=== PATIENT | male | born 1945 | race Caucasian/White ===

== ENCOUNTER 2017-07-26 07:02 | Day surgery (SDC) | payer MEDICARE, BC ==
[2017-07-26] MEDS ORDERED: Dextrose 5%-Lactated Ringers 1,000 ML IV SCH (07:15)
[2017-07-26] MEDS ORDERED: Propofol 200 MG/20 ML SDV ONE (07:46)
[2017-07-26] MEDS ORDERED: fentaNYL 100 MCG/2 ML SDV ONE (07:46)
[2017-07-26 09:35] VITALS: BP 115/68
--- NOTE | 2017-07-31 09:00 | OR ---
DATE OF PROCEDURE: 07/26/2017 PREOPERATIVE DIAGNOSIS: History of colon carcinoma, due for followup colonoscopy. POSTOPERATIVE DIAGNOSIS: Normal colonoscopic examination. OPERATIVE PROCEDURE: Flexible colonoscopy ([id number]). INDICATIONS FOR PROCEDURE: This is a 72-year-old, status post sigmoid colon carcinoma resection, presenting for followup colonoscopy. The plan is to proceed with the colonoscopy with biopsies and/or polypectomy as indicated. Potential risks including bleeding and perforation were discussed, and the patient wishes to proceed. DETAILS OF PROCEDURE: The patient was taken to the operating room and placed in the left lateral decubitus position. IV sedation was administered, after which the initial digital rectal exam was performed and was unremarkable. Colonoscope was then passed into the rectum with retroflexion revealing uncomplicated hemorrhoidal columns. The scope was then passed to the level of cecum. The area of the anastomosis was identified. No local recurrences noted. Otherwise, the examination was unremarkable. The prep was quite clean. Otherwise, unremarkable colorectal anastomosis. There were no areas of diverticular disease, colitis, and no additional polyps or signs of neoplasia. The scope was then withdrawn and the procedure then concluded. The patient was taken to the recovery room in satisfactory condition. Recommendation would be to repeat the colonoscopy in 5 years. Leonid Garay MD /[id number]
== END 2017-07-26 09:59 | disposition home or self-care (01) ==
LOC: JP.SDS 07:02
PROVIDERS: ATTEND Surgery
DX: Z12.11 Encounter for screening for malignant neoplasm of colon (principal); Z85.038 Personal history of other malignant neoplasm of large intestine; F17.210 Nicotine dependence, cigarettes, uncomplicated
CPT/HCPCS: G0105; J2704; J3010; J7042

== ENCOUNTER 2019-08-30 19:56 | Emergency (ER) | payer MEDICARE ==
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
[2019-08-30] MEDS ORDERED: Lactated Ringers 1,000 ML IV ONE (21:02)
[2019-08-30] MEDS ORDERED: Acetaminophen 500 MG Tab PO ONE (21:03)
[2019-08-30] MEDS ORDERED: cefTRIAXone 1 GM in Sodium Chloride 0.9% 50 ML IV ONE (21:45)
[2019-08-30 22:06] VITALS: BP 109/51; PULSE 77
--- NOTE | 2019-09-01 09:34 | CR ---
CHEST: 2 view CLINICAL HISTORY:Low-grade fever COMPARISON:CT chest 06/27/2019 FINDINGS: Lungs are hyperaerated. There is chronic elevation of the left hemidiaphragm. There is patchy density in both lower lung tavares suspect for pneumonia. Patient has a known aortic arch aneurysm. IMPRESSION: COPD Bilateral lower lobe infiltrates Known aortic arch aneurysm Chronic elevation left hemidiaphragm
== END 2019-08-30 22:53 ==
LOC: JP.ED 19:56
DX: D72.825 Bandemia (principal); Z85.820 Personal history of malignant melanoma of skin; Z87.891 Personal history of nicotine dependence
CPT/HCPCS: 36415; 71046; 80048; 83605; 85025; 85379; 87040; 96361; 96365; 99284; 99285; A9270; J0696; J7050; J7120

== ENCOUNTER 2020-06-12 19:13 | Emergency (ER) | payer MEDICARE ==
[2020-06-12] MEDS ORDERED: Bupivacaine 0.5% 10 ML SDV INJECT ONE (19:46)
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
[2020-06-12 20:12] VITALS: BP 137/78; PULSE 97
--- NOTE | 2020-06-14 08:54 | CR ---
Fingers Second Digit Lt F1 CLINICAL HISTORY: Injury FINDINGS: There is soft tissue swelling of the distal index finger. There is a comminuted slightly displaced fracture of the distal phalanx. IMPRESSION: Comminuted displaced fracture of the second distal phalanx
== END 2020-06-12 20:53 | disposition home or self-care (01) ==
LOC: JP.ED 19:13
DX: S62.631B Displaced fracture of distal phalanx of left index finger, initial encounter for open fracture (principal); S60.022A Contusion of left index finger without damage to nail, initial encounter; F17.210 Nicotine dependence, cigarettes, uncomplicated; W23.0XXA Caught, crushed, jammed, or pinched between moving objects, initial encounter
CPT/HCPCS: 11740; 12001; 73140; 99283; J3490

== ENCOUNTER 2022-01-30 17:35 | Emergency (ER) | payer MEDICARE ==
[2022-01-30 18:03] VITALS: BP 137/75; PULSE 80
[2022-01-30] MEDS ORDERED: Iopamidol 612 MG/ML 100 ML Bottle IV SCH (19:15)
[2022-01-30] MEDS ORDERED: Sodium Chloride 0.9% 75 ML IV SCH (19:15)
== END 2022-01-30 20:47 | disposition home or self-care (01) ==
LOC: JP.ED 17:35
DX: R31.0 Gross hematuria (principal); F17.210 Nicotine dependence, cigarettes, uncomplicated; Z79.899 Other long term (current) drug therapy; Z90.49 Acquired absence of other specified parts of digestive tract
CPT/HCPCS: 36415; 74178; 80048; 81001; 85025; 99284; J3490; Q9967

== ENCOUNTER 2022-03-23 11:18 | Emergency (ER) | payer MEDICARE ==
[2022-03-23 12:25] VITALS: BP 103/49; PULSE 88
[2022-03-23] MEDS ORDERED: Lidocaine 2% Jelly 10 ML Urojet MUCMEM ONE (12:59)
== END 2022-03-23 15:07 | disposition home or self-care (01) ==
LOC: JP.ED 11:18
DX: R33.9 Retention of urine, unspecified (principal); R31.0 Gross hematuria; C67.9 Malignant neoplasm of bladder, unspecified; D62 Acute posthemorrhagic anemia; F17.210 Nicotine dependence, cigarettes, uncomplicated; Z79.899 Other long term (current) drug therapy
CPT/HCPCS: 36415; 51702; 81001; 85025; 99283

== ENCOUNTER 2022-03-25 16:30 | Emergency (ER) | payer MEDICARE ==
[2022-03-25 16:48] VITALS: BP 142/63; PULSE 82
== END 2022-03-25 18:57 | disposition home or self-care (01) ==
LOC: JP.ED 16:30
DX: T83.011A Breakdown (mechanical) of indwelling urethral catheter, initial encounter (principal); F17.210 Nicotine dependence, cigarettes, uncomplicated; Z86.16 Personal history of COVID-19
CPT/HCPCS: 81001; 87086; 99283

== ENCOUNTER 2022-03-26 01:50 | Emergency (ER) | payer MEDICARE ==
[2022-03-26 02:14] VITALS: BP 133/80; PULSE 73
== END 2022-03-26 03:00 | disposition home or self-care (01) ==
LOC: JP.ED 01:50
DX: T83.018A Breakdown (mechanical) of other urinary catheter, initial encounter (principal); Z79.899 Other long term (current) drug therapy; Z86.16 Personal history of COVID-19; Z90.49 Acquired absence of other specified parts of digestive tract
CPT/HCPCS: 99283

== ENCOUNTER 2022-09-21 16:10 | Emergency (ER) | payer MEDICARE ==
[2022-09-21] MEDS ORDERED: Sodium Chloride 0.9% 10 ML Syringe FLUSH PRN ×2 (17:08)
[2022-09-21 17:58] LABS: ESTIMATED GFR 52 mL/min (>60); TROPONIN I HIGH SENSITIVITY 11.6 pg/mL (<=60.3)
[2022-09-21] MEDS ORDERED: cefTRIAXone 1 GM in Sodium Chloride 0.9% 50 ML IV ONE (18:51)
[2022-09-21] MEDS ORDERED: cefTRIAXone 1 GM Vial IM ONE (19:09)
[2022-09-21] MEDS ORDERED: Lidocaine 1% 5 ML VIAL INJECT ONE (19:38)
[2022-09-21 20:04] VITALS: BP 130/59; PULSE 80
== END 2022-09-21 21:10 ==
LOC: JP.ED 16:10
DX: D46.9 Myelodysplastic syndrome, unspecified (principal); Z86.16 Personal history of COVID-19; Z72.0 Tobacco use; Z20.822 Contact with and (suspected) exposure to COVID-19
CPT/HCPCS: 36415; 71045; 80053; 81001; 83605; 84443; 84484; 85025; 87040; 87086; 87088; 87186; 96372; 99285; J0696; J3490; U0002

== ENCOUNTER 2023-02-22 16:16 | Emergency (ER) | payer MEDICARE ==
[2023-02-22] MEDS ORDERED: HYDROmorphone 1 MG/ML Syringe IVPUSH ONE (17:32)
[2023-02-22] MEDS ORDERED: Naloxone 0.4 MG/ML SDV IVPUSH PRN (17:32)
[2023-02-22] MEDS ORDERED: Sodium Chloride 0.9% 1,000 ML IV ONE (17:38)
[2023-02-22] MEDS ORDERED: Sodium Chloride 0.9% 50 ML IV SCH (17:45)
[2023-02-22] MEDS ORDERED: Iopamidol 612 MG/ML 100 ML Bottle IV SCH (17:45)
[2023-02-22 17:55] LABS: HEMATOCRIT 22.8 % (38.4-49.7); HEMOGLOBIN 8.1 g/dL (12.9-16.9); MEAN CORPUSCULAR HEMOGLOBIN 31.6 pg (31.6-35.5); MEAN CORPUSCULAR HGB CONC 35.5 g/dL (31.6-35.5); MEAN CORPUSCULAR VOLUME 89.1 fL (81.4-99.0); RED BLOOD CELL COUNT 2.56 M/uL (4.14-5.76); WHITE BLOOD CELL COUNT,WBC 1.5 K/uL (3.2-11.0)
[2023-02-22 18:05] LABS: PLATELET COUNT,PLT 24 K/uL (130-375)
[2023-02-22 18:16] LABS: ALANINE AMINOTRANSFERASE,ALT 20 U/L (12-78); ALBUMIN 3.4 g/dL (3.4-5.0); ALKALINE PHOSPHATASE 407 U/L (46-116); ASPARTATE AMNIOTRANSFERASE,AST 55 U/L (15-37); BILIRUBIN TOTAL 0.7 mg/dL (0.2-1.0); BLOOD UREA NITROGEN,BUN 22 mg/dL (7-18); CALCIUM 9.3 mg/dL (8.5-10.1); CARBON DIOXIDE,CO2 27 mmol/L (21-32); CHLORIDE,CL 101 mmol/L (100-108); ESTIMATED GFR 78 mL/min (>60); GLUCOSE RANDOM 143 mg/dL (74-106); POTASSIUM,K 3.5 mmol/L (3.6-5.2); PROTEIN TOTAL,TP 6.7 g/dL (6.4-8.2); SODIUM,NA 135 mmol/L (140-148)
[2023-02-22] MEDS ORDERED: HYDROmorphone 0.5 MG/0.5 ML Syringe IVPUSH ONE (18:19)
[2023-02-22 18:26] LABS: ANION GAP 10.5 mmol/L (5.0-14.0)
[2023-02-22 18:27] LABS: ATYPICAL LYMPHOCYTES RARE; LYMPHOCYTES ABSOLUTE MAN 0.96 K/uL (0.8-3.3); LYMPHOCYTES PERCENT MAN 64 % (24-44); METAMYELOCYTE ABSOLUTE MAN 0.09 K/uL; METAMYELOCYTE PERCENT MAN 6 %; MONOCYTES ABSOLUTE MAN 0.42 K/uL (0.20-0.90); MONOCYTES PERCENT MAN 28 % (2-6); NEUTROPHILS ABSOLUTE MAN 0.03 K/uL (1.0-7.6); SEG NEUTROPHILS PERCENT MAN 2 % (36-66)
[2023-02-22 19:57] LABS: APPEARANCE,URINE CLOUDY (CLEAR); BILIRUBIN,URINE SMALL (NEGATIVE); COLOR,URINE YELLOW (YELLOW); GLUCOSE,URINE NEGATIVE (NEGATIVE); KETONES,URINE NEGATIVE (NEGATIVE); LEUKOCYTE ESTERASE,URINE NEGATIVE (NEGATIVE); NITRITE,URINE NEGATIVE (NEGATIVE); OCCULT BLOOD,URINE SMALL (NEGATIVE); PH,URINE 6.5 (5.0-8.0); PROTEIN,URINE 100 mg/dL (NEGATIVE)
[2023-02-22 20:01] LABS: MUCUS,URINE MANY; WBC,URINE 0-5 (0-5)
[2023-02-22 20:06] LABS: AMORPHOUS SEDIMENT,URINE MANY; BACTERIA,URINE FEW; EPITHELIAL CELLS,URINE MODERATE
[2023-02-22] MEDS ORDERED: fentaNYL 50 MCG/HR Transdermal Patch TRDERM SCH (20:15)
[2023-02-22 21:53] VITALS: BP 105/58; PULSE 72
== END 2023-02-22 20:42 | disposition home or self-care (01) ==
LOC: JP.ED 16:16
DX: C67.9 Malignant neoplasm of bladder, unspecified (principal); K59.00 Constipation, unspecified; D61.818 Other pancytopenia; R74.8 Abnormal levels of other serum enzymes; Z86.16 Personal history of COVID-19; Z20.822 Contact with and (suspected) exposure to COVID-19; Z72.0 Tobacco use
CPT/HCPCS: 36415; 74177; 76377; 80053; 81001; 82800; 83605; 85025; 93005; 93010; 96361; 96374; 96376; 99284; 99284-25; A9270-GY; J1170; J3490; J7030; Q9967; U0002